=== PATIENT | female | born 1995 | race Caucasian/White ===

== ENCOUNTER 2018-11-21 21:24 | Emergency (ER) | payer BC ==
[2018-11-21 22:22] LABS: #Basophils 0.1 thou/uL (0.0-0.2); #Eosinphils 0.1 thou/uL (0.0-0.7); #Lymphocytes 2.3 thou/uL (1.20-3.40); #Monocytes 0.9 thou/uL (0.11-0.59); #Neutrophils 10.5 thou/uL (1.40-6.50); %Basophils 0.5 % (0.0-1.0); %Eosinophils 0.9 % (0.0-10.0); %Lymphocytes 16.5 % (21.0-51.0); %Monocytes 6.7 % (0.0-10.0); %Neutrophils 75.5 % (42.0-75.0); Hemoglobin 14.2 g/dL (12.0-16.0); Mean Corpuscular HGB CONC 33.6 g/dL (32.0-36.0); Mean Corpuscular Hemoglobin 30.2 pg (27.0-31.0); Mean Corpuscular Volume 89.9 fL (78.0-98.0); Mean Platelet Volume 7.4 fL (7.4-10.4); Platelet Count 260 thou/uL (130-400); RBC Distribution Width 11.2 % (11.5-14.5); White Blood Cell (WBC) Count 13.9 thou/uL (4.8-10.8)
[2018-11-21 22:36] LABS: ALT (SGPT) 46 U/L (8-55); AST (SGOT) 91 U/L (5-34); Albumin 4.4 g/dL (3.5-5.0); Alkaline Phosphatase 78 U/L (40-150); Anion Gap 13 mmol/L (10-20); BUN (Urea Nitrogen) 13 mg/dL (7.0-18.7); Bilirubin, Total 0.8 mg/dL (0.2-1.2); Calc. Creatinine Clearance 0 mL/min (70-130); Calcium 9.3 mg/dL (7.8-10.44); Carbon Dioxide 20 mmol/L (22-29); Chloride 104 mmol/L (98-107); Estimated GFR-MDRD Greater than 90; Glucose 92 mg/dL (70-105); Lipase 66 U/L (8-78); Potassium 4.2 mmol/L (3.5-5.1); Protein, Total 7.4 g/dL (6.0-8.3); Sodium 133 mmol/L (136-145)
[2018-11-21 22:57] LABS: BHCG - Serum Negative (NEGATIVE); Pregs Control Background? CLEAR/WHITE (CLR/WHITE); Pregs Control Bar Appear? YES (CONTROL BAR)
[2018-11-21 23:06] LABS: Bilirubin Negative (Negative); Blood, Urine Negative (Negative); Clarity CLEAR (Clear); Glucose, Urine (Dipstick) Negative (Negative); Leukocyte Trace (Negative); Nitrite Negative (Negative); Protein, Urine (Dipstick) Negative (Neg-Trace); Specific Gravity, Urine 1.027 (1.002-1.036); pH, Urine 5.5 (5.0-9.0)
[2018-11-21 23:09] LABS: Bacteria/HPF Rare-Few HPF (None Seen); Hyaline Casts/LPF 0-3 HYALINE CAST LPF (0-3 Hyaline); Pathc Cast-AUWi Flag 0.27 (0-2.49)
[2018-11-21 23:16] LABS: Pregnancy Test - Urine (BHCG) Negative (Negative); Pregu Control Background? CLEAR/WHITE (CLR/WHITE); Pregu Control Bar Appear? YES (CONTROL BAR); Specific Gravity 1.027 (1.002-1.036)
--- NOTE | 2018-11-21 23:29 | ULT ---
FEXAM: Right upper quadrant ultrasound PROVIDED CLINICAL HISTORY: Right upper quadrant pain COMPARISON: None FINDINGS: Visualized portions of the pancreas appear normal. Liver demonstrates no mass or intrahepatic biliary ductal dilatation. Common duct is nondilated. Gallstones are noted. Gallbladder demonstrates no wall thickening or pericholecystic fluid. Right kidney demonstrates no hydronephrosis or mass. The sonogr apher documents a negative Ftizpatrick sign. IMPRESSION: Cholelithiasis without acute findings related to the gallbladder.
== END 2018-11-22 00:09 | disposition home or self-care (01) ==
LOC: ERS 21:24
DX: K80.20 Calculus of gallbladder without cholecystitis without obstruction (principal)
CPT/HCPCS: 36415; 76705; 80053; 81003; 81015; 81025; 83690; 84703; 85025; 87086

== ENCOUNTER 2018-12-15 06:52 | Day surgery (SDC) | payer BC ==
--- NOTE | 2018-12-05 14:14 | HP ---
HISTORY OF PRESENT ILLNESS: Sonia Barton is a 23-year-old female, presents for symptomatic cholelithiasis, normal bile duct caliber, recent ultrasound, laboratories. The patient was seen in the emergency room, 11/21/2018. CBC, comprehensive metabolic profile are normal. test negative. She has symptomatic cholelithiasis with epigastric right upper quadrant pain. She has several symptoms since. Plan is for laparoscopic cholecystectomy. She understands risks of infection, bleeding, reoperation, visceral injury, open procedure and consents. Planned this as an outpatient. The patient is followed by . ALLERGIES: NONE. TOBACCO: None. ALCOHOL: None. MEDICATIONS: None routinely. PAST SURGICAL HISTORY: Noncontributory. REVIEW OF SYSTEMS: Ten-point noncontributory. PHYSICAL EXAMINATION: VITAL SIGNS: Weight 187 pounds, height 60 inches tall, blood pressure 115/54, heart rate 65, temperature 99 degrees. HEAD, EYES, EARS, NOSE, AND THROAT: Unremarkable. LUNGS: Clear to auscultation. CARDIAC: Rhythm without murmur or gallop. ABDOMEN: Soft and nontender. EXTREMITIES: Unremarkable. ASSESSMENT: Symptomatic cholelithiasis, chronic cholecystitis. PLAN: Laparoscopic video cholecystectomy. Job ID: [id number]
[2018-12-14 12:14] VITALS: BMI 36.1
[2018-12-15] MEDS ORDERED: Levofloxacin 500 mg/D5W 100 ml Premix Bag ONE (07:38)
[2018-12-15] MEDS ORDERED: Ketorolac Tromethamine 30 MG/ML VIAL ONE (07:38)
[2018-12-15] MEDS ORDERED: Fentanyl 100 MCG/2 ML VIAL ONE ×2 (08:49→10:08)
[2018-12-15] MEDS ORDERED: Famotidine/PF 20 mg/2ml Vial ONE (08:49)
[2018-12-15] MEDS ORDERED: PHENYLEPHRINE-NS 100 MCG/ML 10 ML SYRINGE ONE (08:49)
[2018-12-15] MEDS ORDERED: Bupivacaine HCl 0.5%/Epinephrine 1:200,000/PF 30 ml Vial ONE (08:52)
--- NOTE | 2018-12-15 10:10 | OP ---
DATE OF PROCEDURE: 12/15/2018 PREOPERATIVE DIAGNOSES: Chronic cholecystitis, cholelithiasis. POSTOPERATIVE DIAGNOSES: Chronic cholecystitis, cholelithiasis. PROCEDURE PERFORMED: Laparoscopic video cholecystectomy. ANESTHESIA: General, local of 0.5% Marcaine with epinephrine 30 mL, total volume used. DESCRIPTION OF PROCEDURE: The patient was taken to the operating room, where under general anesthesia, abdomen was prepared with ChloraPrep and draped in routine fashion. Local anesthetic was infiltrated in the skin and subcutaneous tissue about each port site. An infraumbilical incision was made. Pneumoperitoneum to 15 mmHg was obtained with a Veress needle, replacing with a 5 port, video laparoscope inserted. Right subxiphoid incision was made and 11 mm port placed. Right subcostal incision was made, midclavicular and anterior axillary lines, a 5 port was placed. Fundus of the gallbladder was grasped at the cephalad. Infundibulum was grasped and reflected laterally. Cystic artery and duct dissected free. Good hemostasis noted. Cystic artery and duct dissected free, critical view obtained. Cystic artery and duct divided. Gallbladder was dissected free from the liver bed obtaining good hemostasis. Gallbladder and contents removed, submitted to Pathology. Good hemostasis was ensured with the cautery. Irrigant and pneumoperitoneum were evacuated. All instruments were removed. All skin incisions were approximated with interrupted subdermal 4-0 Monocryl and Erlanger glue applied. Job ID: [id number]
[2018-12-15] MEDS ORDERED: HYDROcodone/Acetaminophen 5/325 mg Tablet ONE (11:23)
[2018-12-15] MEDS ORDERED: Lidocaine 1% PF 5 ML VIAL ONE (16:28)
[2018-12-15] MEDS ORDERED: Glycopyrrolate 0.2 MG/ML 5 ML SYRINGE ONE (16:28)
[2018-12-15] MEDS ORDERED: Dexamethasone 20 MG/5 ML VIAL ONE (16:28)
[2018-12-15] MEDS ORDERED: PROPOFOL 200 MG/20 ML VIAL ONE (16:28)
[2018-12-15] MEDS ORDERED: Ondansetron PF 4 MG/2 ML Vial ONE (16:28)
[2018-12-15] MEDS ORDERED: Rocuronium Bromide 10 MG/ML (10ML VIAL) ONE (16:28)
== END 2018-12-15 12:00 | disposition home or self-care (01) ==
LOC: SDC 06:52
PROVIDERS: ATTEND Specialist
PROC: 0FT44ZZ Resection of Gallbladder, Percutaneous Endoscopic Approach (ICD-10-PCS; principal; 2018-12-15)
DX: K80.10 Calculus of gallbladder with chronic cholecystitis without obstruction (principal)
CPT/HCPCS: 88304; J0131; J0670; J1100; J1885; J1956; J2001; J2405; J2704; J3010; S0028